=== PATIENT | female | born 1965 | race Caucasian/White ===

== ENCOUNTER 2021-08-20 18:35 | Inpatient (IN) | payer BC ==
[2021-08-20] VITALS (71 sets, daily range): BP systolic 110; BP diastolic 75; PULSE 130; TEMP 98.9; O2SAT 82–100
[~2021-08-20] VITALS: Ht 175.3 cm; Wt 75.4 kg
[~2021-08-20 18:35] MED LIST: ASPIRIN 81M81 MG/TA2 PO; B-12 500 MCG PO; CEFTIN500 MG PO; COREG 3.123.125 MG/T PO; FERROUSAL325 MG PO; FREESTYLE PREC1 EAC5 MC; GLUCOSE TEST ST1 DEV MC; INSULIN AS100 UNIT/3 SQ; KEPPRA 500MG500 MG PO; LANTUS SOLOS100 U/ML SQ; LEVEMIR FLEX100 U/ML SQ; NOVOLOG 100U100 U/M1 SQ; NOVOLOG FLEX100 U/ML SQ; PRIL40 PO; SODIUM BICARBO650 MG PO; VIOKACE10 PO
[2021-08-20 19:59] LABS: ALBUMIN 4.1 gm/dL (3.5-5.0); BILIRUBIN,TOTAL 0.5 mg/dL (0.2-1.2); CALCIUM 9.7 mg/dL (8.4-10.2); CREATININE, serum 1.97 mg/dL (0.57-1.11); HEMATOCRIT 39.8 % (37.0-47.0); HEMOGLOBIN 12.2 g/dl (12.5-16.0); MEAN CELL VOLUME 96 fl (80.0-100.0); MEAN CORPUSCULAR HEMOGLOBIN 29 pg (27-31); MEAN CORPUSCULAR HGB CONC 31 g/dl (33.0-37.0); MEAN PLATELET VOLUME 10.8 fl (7.4-10.4); PLATELET COUNT 402 K/mm3 (130-400); POTASSIUM 5.1 mmol/L (3.5-4.5); RED BLOOD COUNT 4.15 M/mm3 (4.10-5.30); REDCELL DISTRIBUTION WIDTH-CV 13.2 % (11.5-14.5); TOTAL PROTEIN 7.4 gm/dL (6.2-8.1)
[2021-08-20 20:34] LABS: BAND 4 % (0-10); EOSINOPHIL 1 % (0-4); LYMPHOCYTE 4 % (20.0-51.0); NEUTROPHILS 89 % (42.0-75.2); PLATELET ESTIMATE INCREASED (NORMAL)
[2021-08-20] MEDS ORDERED: NOVOLOG 100U100 U/M1 SQ (20:58)
[2021-08-20] MEDS ORDERED: LEVEMIR100 U/ML SQ (20:59)
[2021-08-20] MEDS ORDERED: NEURONTIN100 MG/CAP PO (21:00)
[2021-08-20 21:47] LABS: COLLECTION METHOD CLEAN CATCH
[2021-08-20 21:59] LABS: MUCOUS Present (NOT PRESENT); PH 5 (5-8); SQUAMOUS EPITHELIAL 0-2 /hpf (0-10); URINE APPEARANCE Hazy (CLEAR/HAZY); URINE BACTERIA None Seen /hpf (NONE SEEN); URINE BILIRUBIN Negative (NEGATIVE); URINE BLOOD 1+ (NEGATIVE); URINE COLOR Yellow (YELLOW); URINE GLUCOSE 3+ (NEGATIVE); URINE KETONE 2+ (NEGATIVE); URINE LEUKOCYTE ESTERASE 1+ (NEGATIVE); URINE NITRATE Negative (NEGATIVE); URINE PROTEIN(semi-quant) Negative (NEGATIVE); URINE UROBILINOGEN Negative (NEGATIVE)
[2021-08-20 23:34] LABS: CALCIUM 8.7 mg/dL (8.4-10.2); CREATININE, serum 1.8 mg/dL (0.57-1.11); POTASSIUM 4.5 mmol/L (3.5-4.5)
[2021-08-21] VITALS (479 sets, daily range): BP systolic 98–110; BP diastolic 50–77; PULSE 82–121; TEMP 98–98.8; O2SAT 93–100
[2021-08-21 03:12] LABS: CALCIUM 8.3 mg/dL (8.4-10.2); CREATININE, serum 1.47 mg/dL (0.57-1.11); POTASSIUM 4.1 mmol/L (3.5-4.5)
--- NOTE | 2021-08-21 05:32 | NUR ---
2245 - 6 U/HR 2345 - HOLD FOR 30 MIN, RESUME AT 4 U/HR 0045 - 5 U/HR 0145 - 6 U/HR 0245 - 6 U/HR
--- NOTE | 2021-08-21 06:53 | NUR ---
0245 - 6 U/HR 0345 - 7 U/HR 0445 - 10 U/HR 0545 - 14 U/HR 0645 - 16 U/HR
[2021-08-21 07:15] LABS: BASO # 0.1 K/mm3 (0.0-0.2); BASO % 0.3 % (0.0-2.0); GRAN # 15.3 K/mm3 (1.4-6.5); GRAN % 80.5 % (42.2-75.2); LYMPH # 2.9 K/mm3 (1.2-3.4); MEAN CORPUSCULAR HGB CONC 33 g/dl (33.0-37.0); MEAN PLATELET VOLUME 9.8 fl (7.4-10.4); MONO # 0.7 K/mm3 (0.1-0.6); MONO % 3.6 % (1.7-9.3); PLATELET COUNT 410 K/mm3 (130-400); RED BLOOD COUNT 3.33 M/mm3 (4.10-5.30)
[2021-08-21 07:18] LABS: MEAN CORPUSCULAR HEMOGLOBIN 30 pg (27-31)
[2021-08-21 07:19] LABS: HEMOGLOBIN 9.9 g/dl (12.5-16.0); MEAN CELL VOLUME 90 fl (80.0-100.0)
[2021-08-21 07:26] LABS: CALCIUM 8.2 mg/dL (8.4-10.2); CREATININE, serum 1.28 mg/dL (0.57-1.11); POTASSIUM 3.9 mmol/L (3.5-4.5)
--- NOTE | 2021-08-21 07:50 | NUR ---
Resting in bed; alert and oriented and denies any concerns at this time. Reports feeling much better now than on her arrival to the hospital. Will continue to monitor.
--- NOTE | 2021-08-21 10:08 | NUR ---
elevator worker met with patient to complete intake. Patient reports that she currently lives at home alone in [place] but that her mother is here with her visiting for awhile. Patient reports to being fully independent with her ADL's and does not utilize any DME to assist with mobility. Patient has no home oxygen needs. PCP is Dr. Maria T Hahn and she utilizes [facility] for her medications. Patient reports that she can afford her medications but does have trouble affording the supplies for her insulin Freestyle sensor stating that the supplies cost her $250 per month. Patient does have a DPOA-HC established and a copy can be found in her EMR listing her mother Gabriela "Enriqueta" [phone] and her friend/caregiver Tiffanie [phone]. SW attended rounding and the patient is scheduled to move up to the floor later today.
--- NOTE | 2021-08-21 11:26 | NUR ---
Transfered patient upstairs to medical floor via Wheelchair. Alert and oriented and in no distress upon transfer. TELLO Alvarado notified of patient's arrival.
--- NOTE | 2021-08-21 11:35 | NUR ---
Patient arrived to room 351 from ICU via wheelchair.
--- NOTE | 2021-08-21 17:15 | NUR ---
Patient slept most of afternoon after arriving to unit. Tolerating PO. Voiding without difficulty. 1/2NS@150ml/hr to right hand 22g infusing without difficulty. Denies pain/nausea/shortness of breath. VS remain stable. Blood sugars WNL. Denies current questions/concerns. Call light in reach. Will monitor.
[2021-08-22 03:19] VITALS: BP 101/62; PULSE 69; TEMP 97.9
--- NOTE | 2021-08-22 05:35 | NUR ---
RESTED THROUGH THE NIGHT WIHTOUT INCIDENT. SHOWERED THIS AM.
[2021-08-22 06:11] LABS: BASO # 0.1 K/mm3 (0.0-0.2); BASO % 0.4 % (0.0-2.0); EOS # 0.1 K/mm3 (0.0-0.7); EOS % 0.6 % (0.0-4.0); GRAN # 9.1 K/mm3 (1.4-6.5); GRAN % 68.1 % (42.2-75.2); LYMPH # 3.4 K/mm3 (1.2-3.4); LYMPH % 25.7 % (20.0-51.0); MEAN CELL VOLUME 89 fl (80.0-100.0); MEAN CORPUSCULAR HGB CONC 33 g/dl (33.0-37.0); MONO # 0.6 K/mm3 (0.1-0.6); MONO % 4.8 % (1.7-9.3); PLATELET COUNT 380 K/mm3 (130-400); RED BLOOD COUNT 3.29 M/mm3 (4.10-5.30); REDCELL DISTRIBUTION WIDTH-CV 13.6 % (11.5-14.5)
[2021-08-22 06:15] LABS: HEMATOCRIT 29.4 % (37.0-47.0); HEMOGLOBIN 9.7 g/dl (12.5-16.0); MEAN CORPUSCULAR HEMOGLOBIN 29 pg (27-31)
[2021-08-22 06:52] LABS: CALCIUM 8.1 mg/dL (8.4-10.2); CREATININE, serum 1.01 mg/dL (0.57-1.11); MAGNESIUM 1.6 mg/dL (1.6-2.6); POTASSIUM 3.6 mmol/L (3.5-4.5)
[2021-08-22 07:33] VITALS: BP 112/65; PULSE 79; TEMP 97.9
--- NOTE | 2021-08-22 08:01 | NUR ---
PT SITTING UP IN BED. MORNING MEDICATIONS GIVEN. SHIFT ASSESSMENT COMPLETED. 04/22 NS INFUSING AT 150ML/HR. PT DENIES ANY PAIN OR NEEDS. STATES SHE HAS NO PAIN WITH URINATION. BS AT 75 THIS AM. WILL CONTINUE TO MONITOR.
--- NOTE | 2021-08-22 10:10 | NUR ---
Initial visit; Patient from [facility], very nice, thanked [employer] for visiting her and offering God's blessings and to keep her in [employer]'s prayers.
[2021-08-22] MEDS ORDERED: OMNICEF 300MG300 MG PO (10:24)
--- NOTE | 2021-08-22 11:11 | NUR ---
DISCHARGE INSTRUCTIONS GIVEN. IV D/C. ALL QUESTIONS ANSWERED. ARRANGING TRANSPORTATION.
--- NOTE | 2021-08-22 11:29 | NUR ---
Notified by the patient's RN that she is needing help with a ride home. This SW contacted [facility]iy[facility]vin[facility] who is out of service at the moment. [employer] contacted and they can pick the patient up at 1400. Appointment scheduled for 1400 for them to pick her up. Patient and patients RN notified. Patient states she will keep trying to get a hold of her friend to see if they can pick her up sooner. Educated her to reach out to her RN if she found a ride.
--- NOTE | 2021-08-22 12:44 | NUR ---
PT ESCORTED DOWN TO VEHICLE AT THIS TIME. WILL D/C FROM SYSTEM.
== END 2021-08-22 12:44 | disposition home or self-care (01) | DRG 638 ==
LOC: COL.ER 18:35 → ICU 20:12 → MEDICAL 20:12
PROVIDERS: Emergency Medicine; Student in an Organized Health Care Education/Training Program; ADMIT Internal Medicine
DX: E10.10 Type 1 diabetes mellitus with ketoacidosis without coma (principal); N17.9 Acute kidney failure, unspecified; N39.0 Urinary tract infection, site not specified; G40.909 Epilepsy, unspecified, not intractable, without status epilepticus; E87.5 Hyperkalemia; Z79.82 Long term (current) use of aspirin; Z23 Encounter for immunization
CPT/HCPCS: 99223-AI; 99232-AI; 99233-AI; 99239; J0696; J1644; J1650; J1815; J1953; J2405; J3480; J7030

== ENCOUNTER 2023-02-09 17:54 | Emergency (ER) | payer BC ==
[~2023-02-09] VITALS: Ht 172.7 cm; Wt 66.8 kg
[~2023-02-09 17:54] MED LIST changes: +ALPHA LIPOIC A600 M1 PO; +D3-5050000 IU PO; +DIME240E PO; +LEVEMIR100 U/ML SQ; +NATURAL IRON65 MG; +NEURONTIN100 MG/CAP PO; +OMNICEF 300MG300 MG PO; +VITAMIND3 5000 PO
[2023-02-09 18:29] LABS: BASO # 0.1 K/mm3 (0.0-0.2); BASO % 0.4 % (0.0-2.0); EOS # 0.1 K/mm3 (0.0-0.7); EOS % 0.6 % (0.0-4.0); GRAN % 87.5 % (42.2-75.2); HEMOGLOBIN 12.7 g/dl (12.5-16.0); LYMPH % 6.7 % (20.0-51.0); MEAN CELL VOLUME 93 fl (80.0-100.0); MEAN CORPUSCULAR HEMOGLOBIN 32 pg (27-31); MEAN CORPUSCULAR HGB CONC 35 g/dl (33.0-37.0); MONO # 0.6 K/mm3 (0.1-0.6); MONO % 4.3 % (1.7-9.3); PLATELET COUNT 299 K/mm3 (130-400); RED BLOOD COUNT 3.94 M/mm3 (4.10-5.30); REDCELL DISTRIBUTION WIDTH-CV 13.2 % (11.5-14.5)
[2023-02-09 18:32] LABS: HEMATOCRIT 36.6 % (37.0-47.0)
[2023-02-09 18:48] LABS: BILIRUBIN,TOTAL 0.3 mg/dL (0.2-1.2); CALCIUM 10.1 mg/dL (8.4-10.2); CREATININE, serum 0.83 mg/dL (0.57-1.11); POTASSIUM 3.5 mmol/L (3.5-4.5); TOTAL PROTEIN 7.2 gm/dL (6.2-8.1)
[2023-02-09 20:25] VITALS: TEMP 97.4
[2023-02-09 20:58] VITALS: BP 110/67; PULSE 90
== END 2023-02-09 20:58 | disposition home or self-care (01) ==
LOC: COL.ER 17:54
PROVIDERS: Nurse Practitioner
DX: E10.649 Type 1 diabetes mellitus with hypoglycemia without coma (principal); F17.200 Nicotine dependence, unspecified, uncomplicated

== ENCOUNTER 2023-08-15 16:18 | Emergency (ER) | payer BC ==
[~2023-08-15] VITALS: Ht 172.7 cm; Wt 68.2 kg
[2023-08-15 16:44] VITALS: TEMP 97.8
[2023-08-15] MEDS ORDERED: NS 1,000 ML IV ONE ×2 (17:15→19:30)
[2023-08-15 17:38] LABS: BASO # 0.1 K/mm3 (0.0-0.2); BASO % 0.9 % (0.0-2.0); EOS # 0.1 K/mm3 (0.0-0.7); EOS % 1.4 % (0.0-4.0); GRAN # 6.8 K/mm3 (1.4-6.5); HEMATOCRIT 38.3 % (37.0-47.0); HEMOGLOBIN 13.1 g/dl (12.5-16.0); LYMPH # 1.5 K/mm3 (1.2-3.4); LYMPH % 16.6 % (20.0-51.0); MEAN CELL VOLUME 94 fl (80.0-100.0); MEAN CORPUSCULAR HEMOGLOBIN 32 pg (27-31); MEAN CORPUSCULAR HGB CONC 34 g/dl (33.0-37.0); MEAN PLATELET VOLUME 10.1 fl (7.4-10.4); MONO # 0.6 K/mm3 (0.1-0.6); MONO % 6.9 % (1.7-9.3); PLATELET COUNT 302 K/mm3 (130-400); RED BLOOD COUNT 4.07 M/mm3 (4.10-5.30)
[2023-08-15 17:59] LABS: ALANINE AMINOTRANSFERASE 20 U/L (0-55); ALKALINE PHOSPHATASE 72 U/L (40-150); ANION GAP 12 mmol/L (7-16); AST,SGOT 31 U/L (5-34); BILIRUBIN,TOTAL 0.4 mg/dL (0.2-1.2); BLOOD UREA NITROGEN 21 mg/dL (10-20); CALCIUM 9.9 mg/dL (8.4-10.2); CHLORIDE 104 mEq/L (98-107); CREATININE, serum 0.95 mg/dL (0.57-1.11); GLUCOSE 187 mg/dL (70-99); POTASSIUM 5.2 mEq/L (3.5-4.5); SODIUM 137 mEq/L (136-145); TOTAL PROTEIN 7.6 g/dl (6.2-8.1)
[2023-08-15 18:05] LABS: ACETONE,SERUM NEGATIVE
[2023-08-15 18:12] LABS: TROPONIN-I < 0.010 ng/mL (0.00-0.033)
[2023-08-15 19:12] LABS: COLLECTION METHOD CLEAN CATCH
[2023-08-15 19:22] LABS: URINE APPEARANCE CLOUDY (CLEAR/HAZY); URINE BLOOD NEGATIVE (NEGATIVE); URINE COLOR YELLOW (YELLOW); URINE GLUCOSE 2+ (NEGATIVE); URINE KETONE 3+ (NEGATIVE); URINE NITRATE NEGATIVE (NEGATIVE); URINE PROTEIN(semi-quant) TRACE (NEGATIVE)
[2023-08-15] MEDS ORDERED: Insulin Regular Human (NovoLIN R/HumuLIN R) IV ONE (19:30)
[2023-08-15] MEDS ORDERED: Ondansetron 4 MG/2 ML VIAL IV SCH (19:42)
[2023-08-15] MEDS ORDERED: ZOFRAN ODT4 MG PO (21:42)
[2023-08-15 21:51] VITALS: BP 121/66; PULSE 109
== END 2023-08-15 21:51 | disposition home or self-care (01) ==
LOC: COL.ER 16:18
PROVIDERS: Emergency Medicine
DX: E10.9 Type 1 diabetes mellitus without complications (principal); F17.210 Nicotine dependence, cigarettes, uncomplicated
CPT/HCPCS: J1815; J2405; J7030